=== PATIENT | female | born 1975 | race Two or more races ===

== ENCOUNTER 2018-03-29 12:15 | Emergency (ER) | payer MEDICAID ==
[~2018-03-29] VITALS: Ht 160 cm; Wt 69.0 kg
[~2018-03-29 12:15] MED LIST: IBUP-779 PO; PREN-142 PO
[2018-03-29] MEDS ORDERED: ONDANSETRON 4MG ODT PO ONE (15:30)
[2018-03-29] MEDS ORDERED: KETOROLAC 60MG/2ML VIAL IM ONE (15:30)
[2018-03-29 16:27] VITALS: BP 120/95
== END 2018-03-29 16:28 | disposition home or self-care (01) ==
LOC: ER 12:42
DX: B34.9 Viral infection, unspecified (principal); Z88.5 Allergy status to narcotic agent; Z98.890 Other specified postprocedural states
CPT/HCPCS: 87804; 96372; 99283; J1885; Q0162

== ENCOUNTER 2019-07-02 16:52 | Emergency (ER) | payer MEDICAID ==
[~2019-07-02] VITALS: Ht 157.5 cm; Wt 65.0 kg
[~2019-07-02 16:52] MED LIST changes: -PREN-142 PO; +PRENATAL ONE T1 EACH PO
[2019-07-02] MEDS ORDERED: ACETAMINOPHEN 325MG TABLET PO ONE (17:45)
[2019-07-02] MEDS ORDERED: ALBUTEROL 6.7GM HFA INHALER ORI ONE (18:45)
[2019-07-02] MEDS ORDERED: ALBUTEROL (0.5%) 2.5MG/0.5ML NEB HHN ONE (19:15)
[2019-07-02 19:37] VITALS: BP 121/61
== END 2019-07-02 21:09 | disposition home or self-care (01) ==
LOC: ER 16:52
DX: J45.909 Unspecified asthma, uncomplicated (principal); R06.02 Shortness of breath
CPT/HCPCS: 71045; 81025; 93005; 94640; 99283; Z7610